=== PATIENT | male | born 1955 | race Caucasian/White ===

== ENCOUNTER → 2024-09-26 13:31 | Outpatient (REF) | payer OTHER, SELFPAY | LOC: HWRAD 13:31 | PROVIDERS: ATTENDING PHYSICIAN Podiatrist Foot & Ankle Surgery; FAMILY PHYSICIAN Internal Medicine | DX: M72.2 Plantar fascial fibromatosis (principal) | CPT/HCPCS: 73630 ==

== ENCOUNTER → 2025-03-21 12:24 | Outpatient (REF) | payer OTHER, SELFPAY | LOC: HWRAD 12:24 | PROVIDERS: ATTENDING PHYSICIAN General Practice | DX: M25.561 Pain in right knee (principal); G89.29 Other chronic pain | CPT/HCPCS: 72110; 73565 ==